=== PATIENT | male | born 1955 | race Caucasian/White ===

== ENCOUNTER 2016-05-16 23:58 | Emergency (ER) | payer MEDICAID ==
[~2016-05-16] VITALS: Ht 177.8 cm; Wt 98.1 kg
[~2016-05-16 23:58] MED LIST: DOXA1 PO; GABA100C4 PO; NAPR220T95 PO; ZOCO40TA PO
[2016-05-17 00:05] VITALS: BP 122/84; PULSE 202; TEMP 98.1; O2SAT 93
[2016-05-17 00:20] VITALS: PULSE 87
[2016-05-17] MEDS ORDERED: NAPR220T95 PO (00:23)
[2016-05-17] MEDS ORDERED: NEUR100C PO (00:23)
[2016-05-17] MEDS ORDERED: TETANUS/DIPHTHERIA TOXOID ADULT 0.5 ML VIAL IM ONE (00:45)
[2016-05-17] MEDS ORDERED: LIDOCAINE HCL 1% 50 ML VIAL INFIL ONE (00:45)
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
== END 2016-05-17 01:13 | disposition left against medical advice (07) ==
LOC: PHED 23:58
DX: S09.90XA Unspecified injury of head, initial encounter (principal); E78.00 Pure hypercholesterolemia, unspecified; J44.9 Chronic obstructive pulmonary disease, unspecified; I10 Essential (primary) hypertension; F17.210 Nicotine dependence, cigarettes, uncomplicated; Z23 Encounter for immunization; Y04.0XXA Assault by unarmed brawl or fight, initial encounter; Y93.9 Activity, unspecified; Y92.9 Unspecified place or not applicable; Y99.9 Unspecified external cause status
CPT/HCPCS: 90471; 90714

== ENCOUNTER 2016-08-29 14:45 | Emergency (ER) | payer MEDICAID ==
[~2016-08-29] VITALS: Ht 175.3 cm; Wt 97.7 kg
[~2016-08-29 14:45] MED LIST changes: -DOXA1 PO; -GABA100C4 PO; +NEUR100C PO; -ZOCO40TA PO
[2016-08-29 14:50] VITALS: BP 114/80; PULSE 81; RESP 18; TEMP 97.9; O2SAT 97
[2016-08-29] MEDS ORDERED: OMEP20TA PO (15:21)
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
[2016-08-29] MEDS ORDERED: RESP: ALBUTEROL 2.5 MG/IPRATROPIUM 0.5 MG NEB (SCH) INH ONE (15:45)
[2016-08-29] MEDS ORDERED: PRED50 PO (16:04)
[2016-08-29] MEDS ORDERED: VENTAER INH (16:04)
--- NOTE | 2016-08-29 16:23 | RADRPT ---
EXAM DATE/TIME: 08/29/2016 15:57 [facility] COMPARISON: CHEST SINGLE AP, December 30, 2014, 17:16. INDICATIONS : Short of breath, cough, pain with cough MEDICAL HISTORY : None. SURGICAL HISTORY : None. ENCOUNTER: Initial ACUITY: 4 - 6 months PAIN SCORE: 6/10 LOCATION: Bilateral chest FINDINGS: The study is taken with a poor inspiratory effort. There is increased density at the bases likely rel ated to compressive changes. Some minimal atelectasis cannot be excluded. The heart size is normal. N o effusion is seen. CONCLUSION: Suspected compressive changes from a poor inspiratory effort at the bases. Dorian Sandoval MD on August 29, 2016 at 16:20 Board Certified Radiologist. This report was verified electronically.
== END 2016-08-29 16:18 | disposition home or self-care (01) ==
LOC: PHED 14:45
DX: J43.9 Emphysema, unspecified (principal); F17.210 Nicotine dependence, cigarettes, uncomplicated; F41.8 Other specified anxiety disorders; E78.00 Pure hypercholesterolemia, unspecified; Z86.73 Personal history of transient ischemic attack (TIA), and cerebral infarction without residual deficits; J44.9 Chronic obstructive pulmonary disease, unspecified; I10 Essential (primary) hypertension
CPT/HCPCS: 71010; 94664; 99284

== ENCOUNTER 2017-03-01 14:47 | Emergency (ER) | payer MEDICAID ==
[~2017-03-01] VITALS: Ht 180.3 cm; Wt 95.0 kg
[~2017-03-01 14:47] MED LIST changes: -NAPR220T95 PO; +OMEP20TA93 PO; +PRED50 PO; +VENTAER INH
[2017-03-01 14:51] VITALS: BP 134/79; PULSE 96; RESP 16; TEMP 97.7; O2SAT 95
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
[2017-03-01] MEDS ORDERED: CEPHALEXIN MONOHYDRATE 500 MG CAP PO ONE (15:15)
[2017-03-01] MEDS ORDERED: LIDOCAINE HCL 1% 50 ML VIAL INFIL ONE (15:15)
[2017-03-01] MEDS ORDERED: TETANUS/DIPHTHERIA TOXOID ADULT 0.5 ML VIAL IM ONE (15:15)
[2017-03-01] MEDS ORDERED: LIDOCAINE HCL 1% 20 ML VIAL INFIL ONE (15:15)
[2017-03-01] MEDS ORDERED: CEPH-460 PO (15:37)
== END 2017-03-01 15:49 | disposition home or self-care (01) ==
LOC: PHEFT 14:47
DX: S61.211A Laceration without foreign body of left index finger without damage to nail, initial encounter (principal); W26.0XXA Contact with knife, initial encounter; Y93.G1 Activity, food preparation and clean up; E78.00 Pure hypercholesterolemia, unspecified; R73.03 Prediabetes; I10 Essential (primary) hypertension; F17.210 Nicotine dependence, cigarettes, uncomplicated; D69.6 Thrombocytopenia, unspecified; Z79.82 Long term (current) use of aspirin
CPT/HCPCS: 12001

== ENCOUNTER 2017-03-05 12:04 | Emergency (ER) | payer MEDICAID ==
[~2017-03-05] VITALS: Ht 180.3 cm; Wt 94.6 kg
[~2017-03-05 12:04] MED LIST changes: +CEPH-460 PO; -PRED50 PO
[2017-03-05 12:10] VITALS: BP 161/88; PULSE 99; RESP 16; TEMP 98.5; O2SAT 97
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
[2017-03-05] MEDS ORDERED: ORPHENADRINE INJ 60 MG/2 ML AMP IM ONE (12:30)
[2017-03-05] MEDS ORDERED: KETOROLAC TROMETHAMINE 60 MG/2 ML (IM) VIAL IM ONE (12:30)
--- NOTE | 2017-03-05 12:55 | RADRPT ---
EXAM DATE/TIME: 03/05/2017 12:36 [facility] COMPARISON: CT ABDOMEN & PELVIS W CONTRAST, April 18, 2014, 18:49. HIP LEFT (AP&LAT 2/3VWS) WO AP PELVIS, May, 17:36. INDICATIONS : Right groin pain with no known injury MEDICAL HISTORY : None. SURGICAL HISTORY : None. ENCOUNTER: Initial ACUITY: 3 days PAIN SCORE: 2/10 LOCATION: Right proximal femur FINDINGS: The shaft of the femur is intact. The primary and secondary trabecular pattern of the femoral neck is intact. On both views, there is questionable lucency in the superior lateral femoral head adjacent t o the articular surface with possible sclerotic rim. The cortical margins of the femoral head are smo oth. No radiopaque foreign body seen. No deep soft tissue swelling. Bony acetabulum is intact. CONCLUSION: Questionable lucency in the subcortical its posterior superior femoral head without evidence of corti chanel irregularity. Recommend further evaluation with MRI to evaluate for the possibility of avascular necrosis Manuel Corona MD on March 05, 2017 at 12:51 Board Certified Radiologist. This report was verified electronically.
[2017-03-05] MEDS ORDERED: MORPHINE SULFATE 2 MG/ML INJ IM ONE (13:15)
[2017-03-05] MEDS ORDERED: MORPHINE SULFATE 2 MG/ML INJ IV PUSH ONE (13:15)
--- NOTE | 2017-03-05 14:16 | RADRPT ---
EXAM DATE/TIME: 03/05/2017 13:38 [facility] COMPARISON: FEMUR RIGHT (AP & LAT/2VWS), March 05, 2017, 12:36. INDICATIONS : Right hip pain, no trauma. RADIATION DOSE: 30.74 CTDIvol (mGy) MEDICAL HISTORY : None SURGICAL HISTORY : None. ENCOUNTER: Initial ACUITY: 1 day PAIN SCALE: 6/10 LOCATION: Right hip TECHNIQUE: Volumetric scanning of the hip was performed. Using automated exposure control and adjustment of the mA and/or kV according to patient size, radiation dose was kept as low as reasonably achievable to o btain optimal diagnostic quality images. DICOM format image data is available electronically for rev iew and comparison. FINDINGS: There is evidence of avascular necrosis of the right femoral head with a mild degree of subchondral c ollapse present. A small joint effusion is present. The adjacent pelvis is intact. There is no evidence of periarticular mass or hematoma. CONCLUSION: Avascular necrosis of the right femoral head with mild subchondral collapse. Small joint effusion. Dorian Ugarte MD on March 05, 2017 at 14:05 Board Certified Radiologist. This report was verified electronically.
[2017-03-05 15:06] VITALS: BP 135/80; PULSE 76; RESP 18; O2SAT 96
[2017-03-05] MEDS ORDERED: MORPHINE SULFATE 4 MG/ML INJ IV PUSH ONE (15:15)
[2017-03-05 15:40] LABS: AUTOMATED NEUTROPHIL # 5.2 TH/MM3 (1.8-7.7); BASOPHIL # 0.1 TH/MM3 (0-0.2); BASOPHIL % 1.3 % (0.0-2.0); EOSINOPHIL # 0.2 TH/MM3 (0-0.4); EOSINOPHIL % 2.5 % (0.0-4.0); HEMATOCRIT 52.6 % (39.0-51.0); HEMOGLOBIN 17.8 GM/DL (13.0-17.0); LYMPH % 24.6 % (9.0-44.0); MEAN CORPUSCULAR HEMOGLOBIN 32.2 PG (27.0-34.0); MEAN CORPUSCULAR HGB CONC 33.9 % (32.0-36.0); MEAN PLATELET VOLUME 9.2 FL (7.0-11.0); MONO % 5.5 % (0.0-8.0); MONOCYTE # 0.4 TH/MM3 (0-0.9); NEUT % 66.1 % (16.0-70.0); PLATELET COUNT 131 TH/MM3 (150-450); RED BLOOD COUNT 5.54 MIL/MM3 (4.50-5.90); RED CELL DISTRIBUTION WIDTH 11.8 % (11.6-17.2); WHITE BLOOD COUNT 7.9 TH/MM3 (4.0-11.0)
[2017-03-05 15:51] LABS: BICARBONATE 23.2 MEQ/L (21.0-32.0); CALCIUM 8.3 MG/DL (8.5-10.1)
[2017-03-05 15:55] LABS: CREATININE 0.79 MG/DL (0.60-1.30)
[2017-03-05] MEDS ORDERED: PERC5TAB12 PO (16:01)
== END 2017-03-05 16:23 | disposition home or self-care (01) ==
LOC: PHED 12:04
DX: M87.9 Osteonecrosis, unspecified (principal); E78.00 Pure hypercholesterolemia, unspecified; F32.9 Major depressive disorder, single episode, unspecified; F41.9 Anxiety disorder, unspecified; I10 Essential (primary) hypertension; J44.9 Chronic obstructive pulmonary disease, unspecified; Z86.73 Personal history of transient ischemic attack (TIA), and cerebral infarction without residual deficits; R73.03 Prediabetes; F17.210 Nicotine dependence, cigarettes, uncomplicated; Z79.82 Long term (current) use of aspirin
CPT/HCPCS: 73552; 73700; 80048; 85025; 96372; 96374; 99285; J1885; J2270; J2360

== ENCOUNTER 2017-05-28 12:40 | Emergency (ER) | payer MEDICAID ==
[~2017-05-28] VITALS: Ht 180.3 cm; Wt 95.3 kg
[~2017-05-28 12:40] MED LIST changes: -CEPH-460 PO; +PERC5TAB12 PO; -VENTAER INH
[2017-05-28 12:45] VITALS: BP 122/77; PULSE 95; RESP 16; TEMP 97.6; O2SAT 100
[2017-05-28] MEDS ORDERED: ALEV220T14 PO (13:50)
[2017-05-28] MEDS ORDERED: TRAZ100T10 PO (13:50)
[2017-05-28] MEDS ORDERED: PANTOPRAZOLE SODIUM 40 MG VIAL IV PUSH ONE (14:15)
[2017-05-28] MEDS ORDERED: SODIUM CHLORIDE 0.9% FLUSH 10 ML FLUSH IVF PRN (14:15)
[2017-05-28] MEDS ORDERED: ONDANSETRON HCL 4 MG/2 ML VIAL IVP ONE (14:15)
[2017-05-28] MEDS ORDERED: MORPHINE SULFATE 4 MG/ML INJ IV PUSH ONE ×2 (14:15→15:30)
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
[2017-05-28 14:35] LABS: CHLORIDE 104 MEQ/L (98-107); SODIUM (NA) 135 MEQ/L (136-145)
[2017-05-28 14:36] LABS: AUTOMATED NEUTROPHIL # 3.3 TH/MM3 (1.8-7.7); BASOPHIL % 0.7 % (0.0-2.0); EOSINOPHIL # 0.1 TH/MM3 (0-0.4); EOSINOPHIL % 1.5 % (0.0-4.0); HEMATOCRIT 50.1 % (39.0-51.0); HEMOGLOBIN 17.4 GM/DL (13.0-17.0); LYMPH % 29.7 % (9.0-44.0); LYMPHOCYTE # 1.7 TH/MM3 (1.0-4.8); MEAN CELL VOLUME 96.9 FL (80.0-100.0); MEAN CORPUSCULAR HEMOGLOBIN 33.6 PG (27.0-34.0); MEAN CORPUSCULAR HGB CONC 34.7 % (32.0-36.0); MEAN PLATELET VOLUME 9.1 FL (7.0-11.0); MONO % 9.9 % (0.0-8.0); MONOCYTE # 0.6 TH/MM3 (0-0.9); NEUT % 58.2 % (16.0-70.0); PLATELET COUNT 174 TH/MM3 (150-450); RED BLOOD COUNT 5.16 MIL/MM3 (4.50-5.90); RED CELL DISTRIBUTION WIDTH 13.9 % (11.6-17.2); WHITE BLOOD COUNT 5.8 TH/MM3 (4.0-11.0)
[2017-05-28 14:39] LABS: ALBUMIN 3.4 GM/DL (3.4-5.0); BICARBONATE 23.1 MEQ/L (21.0-32.0); BLOOD UREA NITROGEN 11 MG/DL (7-18); CALCIUM 8.5 MG/DL (8.5-10.1); GLUCOSE,RANDOM 97 MG/DL (74-106)
[2017-05-28 14:42] VITALS: BP_SYST 119; BP_SYST 123; BP_SYST 163; BP_DIAS 70; BP_DIAS 76; BP_DIAS 98; RESP 16; RESP 18
[2017-05-28 14:42] LABS: ALT (GPT) 44 U/L (12-78); AST (GOT) 37 U/L (15-37); GLOMERULAR FILTRATION RATE 115 ML/MIN (>89)
[2017-05-28 14:44] LABS: TOTAL BILIRUBIN ADULT 0.6 MG/DL (0.2-1.0); TOTAL PROTEIN 6.8 GM/DL (6.4-8.2)
[2017-05-28 14:45] LABS: ALKALINE PHOSPHATASE 122 U/L (45-117)
--- NOTE | 2017-05-28 14:45 | RADRPT ---
EXAM DATE/TIME: 05/28/2017 14:21 [facility] COMPARISON: No previous studies available for comparison. INDICATIONS : Right shoulder pain post fall. MEDICAL HISTORY : None. SURGICAL HISTORY : None. ENCOUNTER: Initial ACUITY: 2 days PAIN SCORE: 10/10 LOCATION: Right lateral shoulder FINDINGS: First degree AC separation No dislocation no fracture Minimal peripheral changes right lung apex. CONCLUSION: First degree right AC separation. No fracture Fausto Hamilton MD FACR on May 28, 2017 at 14:41 Board Certified Radiologist. This report was verified electronically.
--- NOTE | 2017-05-28 14:45 | RADRPT ---
EXAM DATE/TIME: 05/28/2017 14:21 [facility] COMPARISON: No previous studies available for comparison. INDICATIONS : Right knee pain post fall. MEDICAL HISTORY : None. SURGICAL HISTORY : None. ENCOUNTER: Initial ACUITY: 2 days PAIN SCORE: 10/10 LOCATION: Right anterior knee FINDINGS: Four view examination of the right knee demonstrates no evidence of fracture or dislocation. Bony mi neralization is normal. The articular surfaces are intact. The suprapatellar soft tissues have a no rmal configuration. CONCLUSION: Negative for fracture or dislocation. Follow up in 7-10 days is suggested if symptoms persist. Fausto Hamilton MD FACR on May 28, 2017 at 14:43 Board Certified Radiologist. This report was verified electronically.
--- NOTE | 2017-05-28 14:46 | RADRPT ---
EXAM DATE/TIME: 05/28/2017 14:21 [facility] COMPARISON: SHOULDER RIGHT COMPLETE (>2VWS), May 28, 2017, 14:21. CHEST SINGLE AP, August 29, 2016, 15:57. INDICATIONS : Short of breath MEDICAL HISTORY : None. SURGICAL HISTORY : None. ENCOUNTER: Initial ACUITY: 1 day PAIN SCORE: 0/10 LOCATION: Bilateral chest FINDINGS: Minimal cortical changes right apex. Left lung clear. The heart and pulmonary vascularity are normal . Right shoulder x-ray had shown an VENICE separation. CONCLUSION: Negative for an acute process.. Fausto Hamilton MD FACR on May 28, 2017 at 14:43 Board Certified Radiologist. This report was verified electronically.
[2017-05-28 14:47] LABS: TROPONIN I LESS THAN 0.02 NG/ML (0.02-0.05)
[2017-05-28 15:15] VITALS: BP 123/76; PULSE 75; RESP 18; O2SAT 97
[2017-05-28] MEDS ORDERED: IOHEXOL 350 MG/ML 10 ML VIAL (for RAD DIAG) IVCONTRAST ONE (15:17)
--- NOTE | 2017-05-28 15:24 | RADRPT ---
EXAM DATE/TIME: 05/28/2017 14:51 [facility] COMPARISON: No previous studies available for comparison. INDICATIONS : Trauma. Fell down a flight of stairs. Hit his head, right neck pain, right shoulder pain and left f lank pain. RADIATION DOSE: 67.94 CTDIvol (mGy) MEDICAL HISTORY : Chronic obstructive pulmonary disease. Seizures. Cardiovascular diseaseHypertensions. Traumatic brai n injury. SURGICAL HISTORY : Facial surgery. ENCOUNTER: Initial ACUITY: 1 day PAIN SCALE: 2/10 LOCATION: cranial TECHNIQUE: Multiple contiguous axial images were obtained of the head. Using automated exposure control and adj ustment of the mA and/or kV according to patient size, radiation dose was kept as low as reasonably a chievable to obtain optimal diagnostic quality images. DICOM format image data is available electro nically for review and comparison. FINDINGS: CEREBRUM: The ventricles are normal for age. No evidence of midline shift, mass lesion, hemorrhage or acute in farction. No extra-axial fluid collections are seen. POSTERIOR FOSSA: The cerebellum and brainstem are intact. The 4th ventricle is midline. The cerebellopontine angle i s unremarkable. EXTRACRANIAL: The visualized portion of the orbits is intact. SKULL: The calvaria is intact. No evidence of skull fracture. CONCLUSION: No acute intracranial disease. Yunior Monaco MD on May 28, 2017 at 15:21 Board Certified Radiologist. This report was verified electronically.
--- NOTE | 2017-05-28 15:25 | RADRPT ---
EXAM DATE/TIME: 05/28/2017 14:51 [facility] COMPARISON: No previous studies available for comparison. INDICATIONS : Trauma. Fell down a flight of stairs. Hit his head, right neck pain, right shoulder pain and left f lank pain. RADIATION DOSE: 26.56 CTDIvol (mGy) MEDICAL HISTORY : Chronic obstructive pulmonary disease. Seizures. Cardiovascular diseaseHypertension. Traumatic brain injury. SURGICAL HISTORY : Facial surgery. ENCOUNTER: Initial ACUITY: 1 day PAIN SCALE: 5/10 LOCATION: Right neck TECHNIQUE: Volumetric scanning of the cervical spine was performed. Multiplanar reconstructions in the sagittal, coronal and oblique axial planes were performed. Using automated exposure control and adjustment o f the mA and/or kV according to patient size, radiation dose was kept as low as reasonably achievable to obtain optimal diagnostic quality images. DICOM format image data is available electronically f or review and comparison. FINDINGS: VERTEBRAE: Normal vertebral body height. Degenerative changes throughout the cervical spine. ALIGNMENT: No evidence of subluxation. Emphysematous changes in the apices. C2-C3: The bony spinal canal is normal in size. No evidence of disc bulge or herniation. The neural forami na are bilaterally patent. C3-C4: The bony spinal canal is normal in size. No evidence of disc bulge or herniation. The neural forami na are bilaterally patent. C4-C5: The bony spinal canal is normal in size. No evidence of disc bulge or herniation. The neural forami na are bilaterally patent. C5-C6: The bony spinal canal is normal in size. No evidence of disc bulge or herniation. The neural forami na are bilaterally patent. C6-C7: The bony spinal canal is normal in size. No evidence of disc bulge or herniation. The neural forami na are bilaterally patent. C7-T1: The bony spinal canal is normal in size. No evidence of disc bulge or herniation. The neural forami na are bilaterally patent. CONCLUSION: 1. Degenerative changes without fracture. Yunior Monaco MD on May 28, 2017 at 15:22 Board Certified Radiologist. This report was verified electronically.
--- NOTE | 2017-05-28 15:37 | RADRPT ---
EXAM DATE/TIME: 05/28/2017 14:51 [facility] COMPARISON: CT ABDOMEN & PELVIS W CONTRAST, April 18, 2014, 18:49. INDICATIONS : Trauma. Fell down a flight of stairs. Hit his head, right neck pain, right shoulder pain and lef t flank pain. IV CONTRAST: 85 cc Omnipaque 350 (iohexol) IV ORAL CONTRAST: No oral contrast ingested. RADIATION DOSE: 19.10 CTDIvol (mGy) MEDICAL HISTORY : Chronic obstructive pulmonary disease. Seizures. Cardiovascular diseaseHypertension. Traumatic brain injury. SURGICAL HISTORY : Facial surgery. ENCOUNTER: Initial ACUITY: 1 day PAIN SCALE: 5/10 LOCATION: Left flank TECHNIQUE: Volumetric scanning of the abdomen and pelvis was performed. Using automated exposure control and ad justment of the mA and/or kV according to patient size, radiation dose was kept as low as reasonably achievable to obtain optimal diagnostic quality images. DICOM format image data is available electro nically for review and comparison. FINDINGS: LOWER LUNGS: The visualized lower lungs are clear. LIVER: Homogeneously low in density without lesion. There is no dilation of the biliary tree. No calcified gallstones. SPLEEN: Normal size without lesion. PANCREAS: Within normal limits. KIDNEYS: Normal in size and shape. There is no mass, stone or hydronephrosis. ADRENAL GLANDS: Within normal limits. VASCULAR: There is no aortic aneurysm. BOWEL/MESENTERY: The stomach, small bowel, and colon demonstrate no acute abnormality. There is no free intraperitone al air or fluid. Scattered colonic diverticuli without acute inflammation. ABDOMINAL WALL: Within normal limits. RETROPERITONEUM: There is no lymphadenopathy. BLADDER: No wall thickening or mass. REPRODUCTIVE: Within normal limits. INGUINAL: There is no lymphadenopathy or hernia. MUSCULOSKELETAL: Within normal limits for patient age. CONCLUSION: No acute disease. Hepatic steatosis. Manuel Grant Jr., MD on May 28, 2017 at 15:31 Board Certified Radiologist. This report was verified electronically.
[2017-05-28 16:00] VITALS: BP_SYST 140; BP_SYST 142; BP_SYST 149; BP_DIAS 80; BP_DIAS 88; BP_DIAS 96; RESP 16; RESP 18
[2017-05-28] MEDS ORDERED: PERC5TAB12 PO (16:00)
[2017-05-28] MEDS ORDERED: ROBA500T PO (16:00)
[2017-05-28] MEDS ORDERED: IBUP1TAB7 PO (16:00)
[2017-05-28] MEDS ORDERED: WHEEMIS3 (16:08)
[2017-05-28] MEDS ORDERED: ORPHENADRINE INJ 60 MG/2 ML AMP IM ONE (16:15)
--- NOTE | 2017-05-29 19:57 | EKG ---
Date Performed: 05/28/2017 Time Performed: 14:48:54 PTAGE: 62 years EKG: Sinus rhythm BORDERLINE LEFT AXIS DEVIATION BORDERLINE ECG Since PREVIOUS TRACING , no significant change noted PREVIOUS TRACIN07/24/2015 18.26 DOCTOR: Deb Roca Interpretating Date/Time 05/29/2017 19:55:59
== END 2017-05-28 16:25 | disposition home or self-care (01) ==
LOC: PHED 12:40 → PHEFT 16:25
DX: S43.101A Unspecified dislocation of right acromioclavicular joint, initial encounter (principal); S79.911A Unspecified injury of right hip, initial encounter; S89.91XA Unspecified injury of right lower leg, initial encounter; S09.90XA Unspecified injury of head, initial encounter; M54.2 Cervicalgia; R10.9 Unspecified abdominal pain; K21.9 Gastro-esophageal reflux disease without esophagitis; R94.31 Abnormal electrocardiogram [ECG] [EKG]; W10.8XXA Fall (on) (from) other stairs and steps, initial encounter; E78.00 Pure hypercholesterolemia, unspecified; I10 Essential (primary) hypertension; F41.8 Other specified anxiety disorders; R73.03 Prediabetes; Z79.82 Long term (current) use of aspirin; Z86.79 Personal history of other diseases of the circulatory system; Z87.09 Personal history of other diseases of the respiratory system; Z86.73 Personal history of transient ischemic attack (TIA), and cerebral infarction without residual deficits; Z87.39 Personal history of other diseases of the musculoskeletal system and connective tissue; Z86.69 Personal history of other diseases of the nervous system and sense organs
CPT/HCPCS: 70450; 71045; 72125; 73030; 73564; 74177; 80053; 84484; 85025; 93005; 96372; 96374; 96375; 96376; 99285; C9113; J2270; J2360; J2405; Q9967

== ENCOUNTER 2017-07-11 12:16 | Emergency (ER) | payer SELFPAY, MEDICAID ==
[2017-07-11] MEDS ORDERED: SODIUM CHLORIDE 0.9% FLUSH 10 ML FLUSH IVF (12:45)
[2017-07-11] MEDS: KETOROLAC TROMETHAMINE 30 MG/ML (IVP) VIAL IV PUSH (13:07)
[2017-07-11 13:39] LABS: BASOPHIL % 0.4 % (0.0-2.0); EOSINOPHIL # 0.1 TH/MM3 (0-0.4); EOSINOPHIL % 1.1 % (0.0-4.0); HEMATOCRIT 40.9 % (39.0-51.0); HEMO FLAGS DIFF FINAL; HEMOGLOBIN 14.1 GM/DL (13.0-17.0); LYMPH % 17.2 % (9.0-44.0); MEAN CELL VOLUME 97.9 FL (80.0-100.0); MEAN CORPUSCULAR HEMOGLOBIN 33.9 PG (27.0-34.0); MEAN CORPUSCULAR HGB CONC 34.6 % (32.0-36.0); MEAN PLATELET VOLUME 9.3 FL (7.0-11.0); MONO % 14.9 % (0.0-8.0); MONOCYTE # 0.9 TH/MM3 (0-0.9); NEUT % 66.4 % (16.0-70.0); PLATELET COUNT 147 TH/MM3 (150-450); RED BLOOD COUNT 4.18 MIL/MM3 (4.50-5.90); RED CELL DISTRIBUTION WIDTH 11.9 % (11.6-17.2)
[2017-07-11 13:49] LABS: CHLORIDE 97 MEQ/L (98-107); POTASSIUM 3.4 MEQ/L (3.5-5.1); SODIUM (NA) 134 MEQ/L (136-145)
[2017-07-11 13:52] LABS: APTT (PATIENT) 24.2 SEC (24.3-30.1); CALCIUM 8.4 MG/DL (8.5-10.1)
[2017-07-11 13:53] LABS: ANION GAP 7 MEQ/L (5-15); BLOOD UREA NITROGEN 12 MG/DL (7-18); GLUCOSE,RANDOM 137 MG/DL (74-106)
[2017-07-11 13:56] LABS: CREATININE 0.57 MG/DL (0.60-1.30); GLOMERULAR FILTRATION RATE 146 ML/MIN (>89)
[2017-07-11 13:59] LABS: CREATINE KINASE 348 U/L (39-308)
[2017-07-11] MEDS: LIDOCAINE HCL 5% PATCH T-DERMAL (14:00)
[2017-07-11 14:15] LABS: CKMB % 0.9 % (0.0-4.0)
[2017-07-11] MEDS: oxyCODONE/ACETAMINOPHEN 7.5 MG/325 MG TAB PO (14:23)
== END 2017-07-11 14:50 | disposition home or self-care (01) ==
LOC: PHED 12:16
DX: S70.01XA Contusion of right hip, initial encounter (principal); R73.03 Prediabetes; I10 Essential (primary) hypertension; J44.9 Chronic obstructive pulmonary disease, unspecified; F41.9 Anxiety disorder, unspecified; E78.00 Pure hypercholesterolemia, unspecified; W19.XXXA Unspecified fall, initial encounter; Z96.641 Presence of right artificial hip joint; Z86.73 Personal history of transient ischemic attack (TIA), and cerebral infarction without residual deficits
CPT/HCPCS: 73501; 80048; 82550; 82552; 85025; 85610; 85730; 93005; 93971; 96374; 99285-25

== ENCOUNTER 2017-12-26 15:10 | Observation (INO) ==
[2017-12-26] MEDS ORDERED: Morphine Inj 4 MG/ML Vial IV.PUSH ONE ×2 (15:20→16:17)
[2017-12-26 16:05] LABS: Chloride 103 meq/L (98-107); Sodium 135 meq/L (136-145)
--- NOTE | 2017-12-26 16:07 | XR ---
EXAM DATE: 12/26/2017 3:21 PM EDT AGE/SEX: 62 years / Male INDICATIONS: Chest pain. CLINICAL DATA: This is the patient's initial encounter. Patient reports that signs and symptoms have been present for 1 day and indicates a pain score of 5/10. MEDICAL/SURGICAL HISTORY: None. None. COMPARISON: POI, XR CHEST PA AND LAT, 12/24/2017. . FINDINGS: Diffuse interstitial prominence exaggerated by iliac pituitary technique. Bibasilar linear opacities. Cardiomediastinal contours are stable given differences in technique. Prior right clavicle resection . Remainder of the exam is unchanged. CONCLUSION: 1. Stable diffuse interstitial prominence with bibasilar atelectasis. Electronically signed by: Geremias Cabrera MD 12/26/2017 4:06 PM EDT
--- NOTE | 2017-12-26 16:08 | ED ---
HPI General Chief complaint: Chest Pain Stated complaint: ALEXANDRA REYNA ATTACK Time Seen by Provider: 12/26/17 15:15 Source: patient Mode of arrival: ambulatory Limitations: no limitations History of Present Illness HPI narrative: Patient is a 62 year old male who comes in complaining of left sided chest pain. He says he has been having issues with chest pain for a few months now. He says he has gone to his doctor and had blood work ordered, which he just had done on Wednesday. He says today, he was making dinner when he developed sharp pain to the left side of his chest that doubled him over. He says deep breathing makes the pain worse. He takes a baby aspirin at home daily. He says he had a cardiac cath a few years ago where they "cleaned something out," but he does not have any cardiac stents. He denies cough or cold symptoms. He denies fever or chills. He denies any recent travel. Severity is moderate. Related Data Home Medications Medication Instructions Recorded Confirmed gabapentin 300 mg PO BID 11/23/17 12/26/17 trazodone 50 mg PO HS PRN 11/23/17 12/26/17 aspirin 1 tab PO DAILY 12/26/17 12/26/17 atorvastatin 10 mg PO DAILY 12/26/17 12/26/17 omeprazole 20 mg PO DAILY 12/26/17 12/26/17 Allergies Allergy/AdvReac Type Severity Reaction Status Date / Time acetaminophen Allergy Severe Itching, Verified 12/26/17 15:47 nausea hydrocodone Allergy Severe Itching, Verified 12/26/17 15:47 nausea Review of Systems ROS: all other systems reviewed are negative Constitutional Denies chills and Denies fever(s) ENT Denies dizziness Cardiovascular Reports chest pain Respiratory Denies cough and Denies dyspnea Gastrointestinal Denies nausea and Denies vomiting Musculoskeletal Denies myalgias and Denies arthralgias Integumentary/Breasts Denies sores and Denies wounds Neurologic Denies focal weakness and Denies numbness [facility] Medical History Medical History CVA (cerebral vascular accident) (Acute) GERD (gastroesophageal reflux disease) (Acute) High cholesterol (Acute) Surgical History Surgical History H/O shoulder surgery (Acute) History of hip replacement, total (Acute) Family History Family History Mother Leukemia Social History Social History Substance History: No History of Abuse Smoking Status: Light tobacco smoker Tobacco Type: Cigarettes How Often Do You Have a Drink Containing Alcohol: 2 to 4 times a month Recent Travel in [facility] within the Last 8 Weeks: No Recent Out of Country Travel within the Last 8 Weeks: No Immunization History Tetanus Immunization: Unsure Exam Narrative Exam Narrative: GENERAL: Awake and alert, no acute distress. SKIN: Focused skin assessment warm/dry. No wounds or signs of infection. HEAD: Atraumatic. Normocephalic. EYES: Pupils equal and round. No scleral icterus. ENT: Mucous membranes pink and moist. NECK: Trachea midline. No JVD. CARDIOVASCULAR: Regular rate and rhythm. No murmur appreciated. RESPIRATORY: No accessory muscle use. Clear to auscultation. Breath sounds equal bilaterally. GASTROINTESTINAL: Abdomen soft, non-tender, nondistended. MUSCULOSKELETAL: No obvious deformities. No clubbing. No cyanosis. No edema. NEUROLOGICAL: Awake and alert. No obvious cranial nerve deficits. Motor grossly within normal limits. Normal speech. PSYCHIATRIC: Appropriate mood and affect; insight and judgment normal. Course Initial Documented Vital Signs Temperature 97.5 F L 12/26/17 15:19 Pulse Rate 66 12/26/17 15:19 Respiratory Rate 18 12/26/17 15:19 Blood Pressure 142/92 H 12/26/17 15:19 Pulse Oximetry 100 12/26/17 15:19 Last Documented Vital Signs Temperature 97.5 F L 12/26/17 15:19 Pulse Rate 60 12/26/17 17:14 Respiratory Rate 18 12/26/17 17:14 Blood Pressure 126/67 12/26/17 17:14 Pulse Oximetry 99 12/26/17 17:14 Medical Decision Making MDM Narrative Medical decision making narrative: Patient is a 62-year-old male who comes in complaining of chest pain. Exam shows no acute abnormalities. IV established, labs sent. Patient connected to the telemetry monitor. Troponin is negative, labs show no acute abnormalities. Chest x-ray performed shows no acute abnormalities. Patient given aspirin, nitro, morphine. He will be placed in observation for further management. Medical Screen Exam Complete: Yes Emergency Medical Condition: Yes Differential Diagnosis Differential Diagnosis: ACS versus NSTEMI versus STEMI Medical Records Medical records reviewed: Yes I reviewed the patient's medical records. Lab Data Lab results reviewed: Yes I reviewed the patient's lab results. Result diagrams: 12/26/17 15:45 12/26/17 15:45 Lab Results 12/26/17 12/26/17 12/26/17 Range/Units 15:45 15:45 15:45 CBC w Diff Auto diff final WBC 6.1 (4.0-11.0) th/mm3 RBC 5.08 (4.50-5.90) mil/mm3 Hgb 16.7 (13.0-17.0) gm/dL Hct 49.3 (39.0-51.0) % MCV 97.1 (80.0-100.0) fL MCH 32.9 (27.0-34.0) pg MCHC 33.9 (32.0-36.0) % RDW 12.9 (11.6-17.2) % Plt Count 143 L (150-450) th/mm3 MPV 9.6 (7.0-11.0) fL Neut % (Auto) 55.5 (16.0-70.0) % Lymph % (Auto) 33.4 (9.0-44.0) % [place] % (Auto) 8.5 H (0.0-8.0) % Eos % (Auto) 1.5 (0.0-4.0) % Baso % (Auto) 1.1 (0.0-2.0) % Neut # (Auto) 3.4 (1.8-7.7) th/mm3 Lymph # (Auto) 2.0 (1.0-4.8) th/mm3 [place] # (Auto) 0.5 (0.0-0.9) th/mm3 Eos # (Auto) 0.1 (0.0-0.4) th/mm3 Baso # (Auto) 0.1 (0.0-0.2) th/mm3 WBC Differential . Differential Comment . PT 10.9 (9.8-11.6) sec INR 1.1 Ratio APTT 22.8 L (24.3-30.1) sec Sodium (136-145) meq/L Potassium (3.5-5.1) meq/L Chloride (98-107) meq/L Carbon Dioxide (21.0-32.0) meq/L Anion Gap (5-15) meq/L BUN (7-18) mg/dL Creatinine (0.60-1.30) mg/dL Estimated GFR (>89) mL/min Random Glucose (74-106) mg/dL Calcium (8.5-10.1) mg/dL Total Bilirubin (0.2-1.0) mg/dL AST (15-37) U/L ALT (12-78) U/L Alkaline Phosphatase (45-117) U/L Total Creatine Kinase (39-308) U/L CK-MB (CK-2) (0.5-3.6) ng/mL Troponin I (0.02-0.05) ng/mL Total Protein (6.4-8.2) g/dL Albumin (3.4-5.0) g/dL Lipase Cancelled 12/26/17 Range/Units 15:45 CBC w Diff WBC (4.0-11.0) th/mm3 RBC (4.50-5.90) mil/mm3 Hgb (13.0-17.0) gm/dL Hct (39.0-51.0) % MCV (80.0-100.0) fL MCH (27.0-34.0) pg MCHC (32.0-36.0) % RDW (11.6-17.2) % Plt Count (150-450) th/mm3 MPV (7.0-11.0) fL Neut % (Auto) (16.0-70.0) % Lymph % (Auto) (9.0-44.0) % [place] % (Auto) (0.0-8.0) % Eos % (Auto) (0.0-4.0) % Baso % (Auto) (0.0-2.0) % Neut # (Auto) (1.8-7.7) th/mm3 Lymph # (Auto) (1.0-4.8) th/mm3 [place] # (Auto) (0.0-0.9) th/mm3 Eos # (Auto) (0.0-0.4) th/mm3 Baso # (Auto) (0.0-0.2) th/mm3 WBC Differential Differential Comment PT (9.8-11.6) sec INR Ratio APTT (24.3-30.1) sec Sodium 135 L (136-145) meq/L Potassium 4.1 (3.5-5.1) meq/L Chloride 103 (98-107) meq/L Carbon Dioxide 21.8 (21.0-32.0) meq/L Anion Gap 10 (5-15) meq/L BUN 12 (7-18) mg/dL Creatinine 0.87 (0.60-1.30) mg/dL Estimated GFR Greater than 89 (>89) mL/min Random Glucose 128 H (74-106) mg/dL Calcium 8.8 (8.5-10.1) mg/dL Total Bilirubin 1.1 H (0.2-1.0) mg/dL AST 44 H (15-37) U/L ALT 43 (12-78) U/L Alkaline Phosphatase 109 (45-117) U/L Total Creatine Kinase 160 (39-308) U/L CK-MB (CK-2) 2.9 (0.5-3.6) ng/mL Troponin I Less than 0.02 L (0.02-0.05) ng/mL Total Protein 7.5 (6.4-8.2) g/dL Albumin 3.6 (3.4-5.0) g/dL Lipase 133 Imaging Data Radiologist's impression: Chest X-Ray 12/26/17 15:21 CONCLUSION: 1. Stable diffuse interstitial prominence with bibasilar atelectasis. ECG Data EKG Prior to Arrival: No Attestation: I personally reviewed and interpreted this ECG as follows: Interpretation: ECG shows normal sinus rhythm, no ST elevation or depression, normal intervals Discharge Plan Discharge Disposition Patient Disposition: 30 Still Patient Discharge Condition Condition: Stable Discharge Details Diagnosis: Chest pain Physicians Team ED Provider: Lorena Chery Primary Care Provider: UNKNOWN, Attending Provider: Bouchra Wray Status ED Status: Admitted Observation Patient
[2017-12-26 16:09] LABS: Albumin 3.6 g/dL (3.4-5.0); Calcium 8.8 mg/dL (8.5-10.1); Glucose,Random 128 mg/dL (74-106); Lipase 133 U/L (73-393)
[2017-12-26 16:10] LABS: Anion Gap 10 meq/L (5-15); Blood Urea Nitrogen 12 mg/dL (7-18); Carbon Dioxide 21.8 meq/L (21.0-32.0)
[2017-12-26 16:12] LABS: Alanine Aminotransferase 43 U/L (12-78); Aspartate Aminotransferase 44 U/L (15-37); Glomerular Filtration Rate Greater Than 89 mL/min (>89)
[2017-12-26 16:14] LABS: Total Protein 7.5 g/dL (6.4-8.2)
[2017-12-26 16:15] LABS: Alkaline Phosphatase 109 U/L (45-117); Creatine Kinase 160 U/L (39-308)
[2017-12-26 16:17] LABS: Potassium 4.1 meq/L (3.5-5.1)
[2017-12-26 16:21] LABS: Baso # (Auto) 0.1 th/mm3 (0.0-0.2); Baso % (Auto) 1.1 % (0.0-2.0); Eos # (Auto) 0.1 th/mm3 (0.0-0.4); Eos % (Auto) 1.5 % (0.0-4.0); Hematocrit 49.3 % (39.0-51.0); Hemoglobin 16.7 gm/dL (13.0-17.0); Lymph % (Auto) 33.4 % (9.0-44.0); Mean Corpuscular HGB Conc 33.9 % (32.0-36.0); Mean Corpuscular Hemoglobin 32.9 pg (27.0-34.0); Mean Corpuscular Volume 97.1 fL (80.0-100.0); Mean Platelet Volume 9.6 fL (7.0-11.0); Mono # (Auto) 0.5 th/mm3 (0.0-0.9); Mono % (Auto) 8.5 % (0.0-8.0); Neut # (Auto) 3.4 th/mm3 (1.8-7.7); Neut % (Auto) 55.5 % (16.0-70.0); Platelet Count 143 th/mm3 (150-450); Red Blood Count 5.08 mil/mm3 (4.50-5.90); Red Cell Distribution Width 12.9 % (11.6-17.2); White Blood Count 6.1 th/mm3 (4.0-11.0)
[2017-12-26 16:30] LABS: Creatine Kinase MB 2.9 ng/mL (0.5-3.6)
[2017-12-26 16:38] LABS: Activated Partial Thrombo Time 22.8 sec (24.3-30.1); INR 1.1 Ratio; Prothrombin Time 10.9 sec (9.8-11.6)
[2017-12-26] MEDS ORDERED: traZODone 50 MG Tablet PO PRN (17:49)
--- NOTE | 2017-12-26 17:49 | P.HP ---
History of Present Illness Primary Care Physician: UNKNOWN Chief Complaint: chest pain History of Present Illness: This is a 62-year-old male patient with a known medical history of CAD and previous ND who presented to the ED with complaints of chest pain. Patient states that as he is prepping dinner tonight he noticed a heavy squeezing sensation in his midsternal chest, that radiated up his neck and shoulders, patient states that the pain lasted roughly 5 minutes and went away on its own. Patient admits to associated shortness of breath, nausea and diaphoresis. She states that over the past couple weeks he has been having these types of sensations and they have been more frequent now. He does admit to increasing life stressors as well which may be contributing to his chest pain he states. Patient states 2 weeks ago he presented to [facility] for evaluation of chest pain at that time an ND was ruled out, patient states that the place was too busy and sent home. It should be noted that patient underwent a cardiac catheterization 2001, was said to have an ND at that time, he is unaware if they did during the cardiac cath, denies any stent placement. Patient does not follow with a epic trainer. Denies any recent illness including fever, chills, cough, headache, dumping, nausea, vomiting, diarrhea or dysuria. - Diagnosis (1) Chest pain Review of Systems All other systems reviewed negative except as stated in HPI PMFSH - History History Provided By: Patient - Medical History Medical History: Medical History (Last Reviewed 12/26/17 @ 17:45 by Lorena Fraser) CVA (cerebral vascular accident) GERD (gastroesophageal reflux disease) High cholesterol - Surgical History Surgical History: Surgical History (Last Reviewed 12/26/17 @ 17:45 by Lorena Fraser) H/O shoulder surgery History of hip replacement, total - Family History Family History: Family History (Last Updated 12/26/17 @ 17:45 by Lorena Fraser) Mother Leukemia - Social History I have reviewed the patient's Social History: Yes - Tobacco History Tobacco Use In Past 30 Days: Yes Smoking Status: Light tobacco smoker Tobacco Type: Cigarettes - Alcohol History How Often Do You Have a Drink Containing Alcohol: 2 to 4 times a month - Substance Use History Substance History: No History of Abuse - Travel History Recent Travel in the [facility] Within the Last 8 Weeks: No Recent Travel Out of the Country Within the Last 8 Weeks: No - Immunization History Tetanus Immunization: Unsure Medications and Allergies Active Medications: Active Medications Nitroglycerin (Nitrostat Sl) 0.4 mg SL Q5M PRN PRN Reason: CHEST PAIN Ondansetron HCl (Zofran Inj) 4 mg IV.PUSH Q6H PRN PRN Reason: NAUSEA Sodium Chloride (Ns Flush) 2 ml IV.FLUSH BID EVON Sodium Chloride (Ns Flush) 2 ml IV.FLUSH PRN PRN PRN Reason: FLUSH AFTER USING IV ACCESS Allergies Allergy/AdvReac Type Severity Reaction Status Date / Time acetaminophen Allergy Severe Itching, Verified 12/26/17 15:47 nausea hydrocodone Allergy Severe Itching, Verified 12/26/17 15:47 nausea Home Medications Medication Instructions Recorded Confirmed Type gabapentin 300 mg PO BID 11/23/17 12/26/17 History trazodone 50 mg PO HS PRN 11/23/17 12/26/17 History aspirin 1 tab PO DAILY 12/26/17 12/26/17 History atorvastatin 10 mg PO DAILY 12/26/17 12/26/17 History omeprazole 20 mg PO DAILY 12/26/17 12/26/17 History Exam Vital signs: Vital Signs 12/26/17 15:19 12/26/17 15:40 12/26/17 15:46 Temperature 97.5 F L Pulse Rate 66 67 79 Respiratory Rate 18 18 Blood Pressure 142/92 H 120/65 Pulse Oximetry 100 98 98 12/26/17 16:03 12/26/17 16:15 12/26/17 17:14 Temperature Pulse Rate 69 62 60 Respiratory Rate 18 18 18 Blood Pressure 132/79 111/61 126/67 Pulse Oximetry 100 98 99 Intake & Output 12/25/17 12/26/17 12/26/17 18:59 06:59 18:59 Weight 93.2 kg Narrative: GENERAL: Well-developed, well-nourished patient in [facility]. SKIN: Warm and dry. No rash. HEAD: Normocephalic. Atraumatic. EYES: Pupils equal and round. No scleral icterus. No injection or drainage. ENT: No nasal bleeding or discharge. Mucous membranes pink and moist. NECK: Supple. Trachea midline. CARDIOVASCULAR: Regular rate and rhythm. S1, S2 noted. No murmur appreciated. No chest pain to palpation. RESPIRATORY: No accessory muscle use. Clear to auscultation. Breath sounds equal bilaterally. GASTROINTESTINAL: Abdomen soft, non-tender, nondistended. Normoactive bowel sounds x4. MUSCULOSKELETAL: No obvious deformities. Extremities without clubbing, cyanosis , or edema. NEUROLOGICAL: Awake and alert. No obvious cranial nerve deficits. Motor grossly within normal limits. 5/5 muscle strength in bilateral upper and lower extremities. Normal speech. PSYCHIATRIC: Appropriate mood and affect; insight and judgment normal. Results - Labs CBC & Chem 7: 12/26/17 15:45 12/26/17 15:45 Labs: Laboratory Results - last 24 hr 12/26/17 12/26/17 12/26/17 15:45 15:45 15:45 CBC w Diff Auto diff final WBC 6.1 RBC 5.08 Hgb 16.7 Hct 49.3 MCV 97.1 MCH 32.9 MCHC 33.9 RDW 12.9 Plt Count 143 L MPV 9.6 Neut % (Auto) 55.5 Lymph % (Auto) 33.4 [place] % (Auto) 8.5 H Eos % (Auto) 1.5 Baso % (Auto) 1.1 Neut # (Auto) 3.4 Lymph # (Auto) 2.0 [place] # (Auto) 0.5 Eos # (Auto) 0.1 Baso # (Auto) 0.1 WBC Differential . Differential Comment . PT 10.9 INR 1.1 APTT 22.8 L Sodium Potassium Chloride Carbon Dioxide Anion Gap BUN Creatinine Estimated GFR Random Glucose Calcium Total Bilirubin AST ALT Alkaline Phosphatase Total Creatine Kinase CK-MB (CK-2) Troponin I Total Protein Albumin Lipase Cancelled 12/26/17 15:45 CBC w Diff WBC RBC Hgb Hct MCV MCH MCHC RDW Plt Count MPV Neut % (Auto) Lymph % (Auto) [place] % (Auto) Eos % (Auto) Baso % (Auto) Neut # (Auto) Lymph # (Auto) [place] # (Auto) Eos # (Auto) Baso # (Auto) WBC Differential Differential Comment PT INR APTT Sodium 135 L Potassium 4.1 Chloride 103 Carbon Dioxide 21.8 Anion Gap 10 BUN 12 Creatinine 0.87 Estimated GFR Greater than 89 Random Glucose 128 H Calcium 8.8 Total Bilirubin 1.1 H AST 44 H ALT 43 Alkaline Phosphatase 109 Total Creatine Kinase 160 CK-MB (CK-2) 2.9 Troponin I Less than 0.02 L Total Protein 7.5 Albumin 3.6 Lipase 133 - Imaging Impressions Chest X-Ray 12/26/17 15:21 CONCLUSION: 1. Stable diffuse interstitial prominence with bibasilar atelectasis. Caprini VTE Risk Assessment Caprini VTE Risk Assessment: No/Low Risk (score <= 1) Caprini Risk Assessment Model: Point Value = 1 Point Value = 2 Point Value = 3 Point Value = 5 Age 41-60 Minor surgery BMI > 25 kg/m2 Swollen legs Varicose veins or History of unexplained or recurrent spontaneous Oral contraceptives or hormone replacement Sepsis (< 1 month) Serious lung disease, including pneumonia (< 1 month) Abnormal pulmonary function Acute myocardial infarction Congestive heart failure (< 1 month) History of inflammatory bowel disease Medical patient at bed rest Age 61-74 Arthroscopic surgery Major open surgery (> 45 min) Laparoscopic surgery (> 45 min) Malignancy Confined to bed (> 72 hours) Immobilizing plaster cast Central venous access Age >= 75 History of VTE Family history of VTE Factor V Leiden Prothrombin [id number] Lupus anticoagulant Anticardiolipin antibodies Elevated serum homocysteine Heparin-induced thrombocytopenia Other congenital or acquired thrombophilia Stroke (< 1 month) Elective arthroplasty Hip, pelvis, or leg fracture Acute spinal cord injury (< 1 month) Prophylaxis Regimen: Total Risk Factor Score Risk Level Prophylaxis Regimen 0-1 Low Early ambulation 2 Moderate Order ONE of the following: *Sequential Compression Device (SCD) *Heparin 5000 units SQ BID 3-4 Higher Order ONE of the following medications: *Heparin 5000 units SQ TID *Enoxaparin/Lovenox 40 mg SQ daily (WT < 150 kg, CrCl > 30 mL/min) *Enoxaparin/Lovenox 30 mg SQ daily (WT < 150 kg, CrCl > 10-29 mL/min) *Enoxaparin/Lovenox 30 mg SQ BID (WT < 150 kg, CrCl > 30 mL/min) AND/OR *Sequential Compression Device (SCD) 5 or more Highest Order ONE of the following medications: *Heparin 5000 units SQ TID (Preferred with Epidurals) *Enoxaparin/Lovenox 40 mg SQ daily (WT < 150 kg, CrCl > 30 mL/min) *Enoxaparin/Lovenox 30 mg SQ daily (WT < 150 kg, CrCl > 10-29 mL/min) *Enoxaparin/Lovenox 30 mg SQ BID (WT < 150 kg, CrCl > 30 mL/min) AND *Sequential Compression Device (SCD) Assessment and Plan - Assessment (1) Chest pain Code(s): R07.9 - Chest pain, unspecified Status: Acute - Plan This is a 62-year-old male presented to the ED with: Chest pain History of CAD with previous ND History of hyperlipidemia, chronic -Patient admits to a midsternal chest pressure lasting roughly 5 minutes that has been more frequent over the past 2 weeks. -He has been admitted to the chest pain center for observation. Serial EKGs and serial troponins were ordered for ruling out ACS purposes. -Initial troponin flat. Will follow trend. EKG reviewed, showing no ST changes to indicate any ischemia. -Chest x-ray reviewed showing some interstitial prominence, no acute cardiopulmonary disease noted. -Patient continued on cardiac telemetry. Monitor for any arrhythmias. -Will continue home statin for cholesterol. -Patient's risk factors include tobacco use, obesity and previous CAD with ND. Patient denies any previous stress test. He will likely undergo a cardiac nuclear stress test in the a.m. to further rule out any ischemia. -Further hospitalization treatment plan will depend on nuclear imaging results. -Patient is stable at this time and agreeable to plan. DVT prophylaxis: SCDs.
[2017-12-26] MEDS: Morphine Sulfate Inj 2 MG/ML Vial IV.PUSH PRN ×2 (18:27→22:32)
[2017-12-26 19:32] LABS: Creatine Kinase 99 U/L (39-308)
[2017-12-26] MEDS: Gabapentin 300 MG Capsule PO SCH (21:05)
[2017-12-26 22:17] LABS: Creatine Kinase 110 U/L (39-308)
[2017-12-27 06:58] LABS: Baso # (Auto) 0.1 th/mm3 (0.0-0.2); Eos # (Auto) 0.2 th/mm3 (0.0-0.4); Eos % (Auto) 2.9 % (0.0-4.0); Hematocrit 48.1 % (39.0-51.0); Hemoglobin 16.4 gm/dL (13.0-17.0); Lymph # (Auto) 1.7 th/mm3 (1.0-4.8); Lymph % (Auto) 32.3 % (9.0-44.0); Mean Corpuscular Hemoglobin 33.1 pg (27.0-34.0); Mean Corpuscular Volume 97.2 fL (80.0-100.0); Mean Platelet Volume 9.1 fL (7.0-11.0); Mono # (Auto) 0.5 th/mm3 (0.0-0.9); Mono % (Auto) 9.6 % (0.0-8.0); Neut # (Auto) 2.7 th/mm3 (1.8-7.7); Neut % (Auto) 53.2 % (16.0-70.0); Platelet Count 135 th/mm3 (150-450); Red Blood Count 4.95 mil/mm3 (4.50-5.90); Red Cell Distribution Width 12.7 % (11.6-17.2); White Blood Count 5.2 th/mm3 (4.0-11.0)
[2017-12-27 07:05] LABS: Chloride 102 meq/L (98-107); Potassium 3.9 meq/L (3.5-5.1); Sodium 137 meq/L (136-145)
[2017-12-27 07:10] LABS: Albumin 3.4 g/dL (3.4-5.0); Anion Gap 8 meq/L (5-15); Blood Urea Nitrogen 11 mg/dL (7-18); Calcium 8.3 mg/dL (8.5-10.1); Carbon Dioxide 27.1 meq/L (21.0-32.0); Glucose,Random 99 mg/dL (74-106)
[2017-12-27 07:13] LABS: Alanine Aminotransferase 40 U/L (12-78); Aspartate Aminotransferase 31 U/L (15-37); Glomerular Filtration Rate Greater Than 89 mL/min (>89)
[2017-12-27 07:15] LABS: Total Protein 6.8 g/dL (6.4-8.2)
[2017-12-27 07:16] LABS: Alkaline Phosphatase 100 U/L (45-117)
--- NOTE | 2017-12-27 07:43 | P.PNIM ---
Subjective Interval history: Follow up chest pain. Patient seen and examined, sitting on side of bed comfortably in [facility]. Denies any chest pain overnight. VSS. Afebrile. Awaiting stress test this am. Physical Exam Vital signs: Vital Signs 12/26/17 15:19 12/26/17 15:40 12/26/17 15:46 Temperature 97.5 F L Pulse Rate 66 67 79 Respiratory Rate 18 18 Blood Pressure 142/92 H 120/65 Pulse Oximetry 100 98 98 12/26/17 16:03 12/26/17 16:15 12/26/17 17:14 Temperature Pulse Rate 69 62 60 Respiratory Rate 18 18 18 Blood Pressure 132/79 111/61 126/67 Pulse Oximetry 100 98 99 12/26/17 20:00 12/27/17 00:00 12/27/17 04:00 Temperature 97.6 F 99.2 F 96.4 F L Pulse Rate 75 77 64 Respiratory Rate 18 18 18 Blood Pressure 123/68 122/81 Pulse Oximetry 96 95 94 L Intake & Output 12/26/17 12/27/17 12/27/17 18:59 06:59 18:59 Intake Total 480 / 480 Output Total 150 / 150 Balance 480 / 480 -150 / -150 Weight 93.2 kg 92.6 kg Intake: Oral 480 / 480 Output: Urine 150 / 150 Other: # Voids 1 4 # Bowel Movements 0 Narrative: GENERAL: Well-developed, well-nourished patient in [facility]. SKIN: Warm and dry. No rash. HEAD: Normocephalic. Atraumatic. EYES: Pupils equal and round. No scleral icterus. No injection or drainage. ENT: No nasal bleeding or discharge. Mucous membranes pink and moist. NECK: Supple. Trachea midline. CARDIOVASCULAR: Regular rate and rhythm. S1, S2 noted. No murmur appreciated. No chest pain to palpation. RESPIRATORY: No accessory muscle use. Clear to auscultation. Breath sounds equal bilaterally. GASTROINTESTINAL: Abdomen soft, non-tender, nondistended. Normoactive bowel sounds x4. MUSCULOSKELETAL: No obvious deformities. Extremities without clubbing, cyanosis , or edema. NEUROLOGICAL: Awake and alert. No obvious cranial nerve deficits. Motor grossly within normal limits. 5/5 muscle strength in bilateral upper and lower extremities. Normal speech. PSYCHIATRIC: Appropriate mood and affect; insight and judgment normal. Results - Labs CBC & Chem 7: 12/27/17 06:15 12/27/17 06:15 Laboratory Results - last 24 hr 12/26/17 12/26/17 12/26/17 15:45 15:45 15:45 CBC w Diff Auto diff final WBC 6.1 RBC 5.08 Hgb 16.7 Hct 49.3 MCV 97.1 MCH 32.9 MCHC 33.9 RDW 12.9 Plt Count 143 L MPV 9.6 Neut % (Auto) 55.5 Lymph % (Auto) 33.4 [place] % (Auto) 8.5 H Eos % (Auto) 1.5 Baso % (Auto) 1.1 Neut # (Auto) 3.4 Lymph # (Auto) 2.0 [place] # (Auto) 0.5 Eos # (Auto) 0.1 Baso # (Auto) 0.1 WBC Differential . Differential Comment . PT 10.9 INR 1.1 APTT 22.8 L Sodium Potassium Chloride Carbon Dioxide Anion Gap BUN Creatinine Estimated GFR Random Glucose Calcium Total Bilirubin AST ALT Alkaline Phosphatase Total Creatine Kinase CK-MB (CK-2) Troponin I Total Protein Albumin Lipase Cancelled 12/26/17 12/26/17 12/26/17 15:45 18:43 21:50 CBC w Diff WBC RBC Hgb Hct MCV MCH MCHC RDW Plt Count MPV Neut % (Auto) Lymph % (Auto) [place] % (Auto) Eos % (Auto) Baso % (Auto) Neut # (Auto) Lymph # (Auto) [place] # (Auto) Eos # (Auto) Baso # (Auto) WBC Differential Differential Comment PT INR APTT Sodium 135 L Potassium 4.1 Chloride 103 Carbon Dioxide 21.8 Anion Gap 10 BUN 12 Creatinine 0.87 Estimated GFR Greater than 89 Random Glucose 128 H Calcium 8.8 Total Bilirubin 1.1 H AST 44 H ALT 43 Alkaline Phosphatase 109 Total Creatine Kinase 160 99 110 CK-MB (CK-2) 2.9 Troponin I Less than 0.02 L Less than 0.02 L Less than 0.02 L Total Protein 7.5 Albumin 3.6 Lipase 133 12/27/17 12/27/17 06:15 06:15 CBC w Diff Auto diff final WBC 5.2 RBC 4.95 Hgb 16.4 Hct 48.1 MCV 97.2 MCH 33.1 MCHC 34.0 RDW 12.7 Plt Count 135 L MPV 9.1 Neut % (Auto) 53.2 Lymph % (Auto) 32.3 [place] % (Auto) 9.6 H Eos % (Auto) 2.9 Baso % (Auto) 2.0 Neut # (Auto) 2.7 Lymph # (Auto) 1.7 [place] # (Auto) 0.5 Eos # (Auto) 0.2 Baso # (Auto) 0.1 WBC Differential . Differential Comment . PT INR APTT Sodium 137 Potassium 3.9 Chloride 102 Carbon Dioxide 27.1 Anion Gap 8 BUN 11 Creatinine 0.78 Estimated GFR Greater than 89 Random Glucose 99 Calcium 8.3 L Total Bilirubin 1.2 H AST 31 ALT 40 Alkaline Phosphatase 100 Total Creatine Kinase CK-MB (CK-2) Troponin I Total Protein 6.8 D Albumin 3.4 Lipase - Imaging Impressions Chest X-Ray 12/26/17 15:21 CONCLUSION: 1. Stable diffuse interstitial prominence with bibasilar atelectasis. Assessment and Plan - Assessment (1) Chest pain Code(s): R07.9 - Chest pain, unspecified Status: Acute - Plan This is a 62-year-old male presented to the ED with: Chest pain History of CAD with previous MS History of hyperlipidemia, chronic -Patient admits to a midsternal chest pressure lasting roughly 5 minutes that has been more frequent over the past 2 weeks. -He has been admitted to the chest pain center for observation. Serial EKGs and serial troponins were ordered for ruling out ACS purposes. -Troponin trend flat. EKG reviewed, showing no ST changes to indicate any ischemia. -Chest x-ray reviewed showing some interstitial prominence, no acute cardiopulmonary disease noted. -Patient continued on cardiac telemetry. Monitor for any arrhythmias. None overnight. -Will continue home statin for cholesterol. -Patient's risk factors include tobacco use, obesity and previous CAD with MS. Patient denies any previous stress test. -ACS was ruled out with cardiac enzymes and EKGs. He will undergo a cardiac nuclear stress test this am to further rule out any ischemia. -Further hospitalization treatment plan will depend on nuclear imaging results. -Patient is stable at this time and agreeable to plan. DVT prophylaxis: SCDs. Discharge Planning: Await cardiac stress test.
[2017-12-27] MEDS: Gabapentin 300 MG Capsule PO SCH (08:43)
[2017-12-27] MEDS ORDERED: Pantoprazole Sodium 20 MG DR Tablet PO SCH (09:00)
[2017-12-27 09:59] VITALS: BP 141/92; RESP 19; TEMP 97.1; O2SAT 95
[2017-12-27] MEDS ORDERED: Regadenoson Inj 0.4 MG/5 ML Syringe IV.PUSH ONE (11:28)
--- NOTE | 2017-12-27 12:23 | NM ---
EXAM DATE: 12/27/2017 10:47 AM EDT AGE/SEX: 62 years / Male INDICATIONS:Angina. . Substernal chest pain. CLINICAL DATA: This is the patient's initial encounter. Patient reports that signs and symptoms have been present for 1 day and indicates a pain score of 5/10. MEDICAL/SURGICAL HISTORY: Gastroesophageal reflux disease. . Hip replacement and shoulder surge ry. COMPARISON: [facility], CTA CAROTID ARTERIES W 3D RECON, 09/25/2014. . DOSE: 8.1 mCi Tc 99m Myoview at rest 26.3 mCi [id number] at stress 0.4 mg Lexiscan STRESS SYMPTOMS: Short of breath and nausea. EJECTION FRACTION: 66 % TECHNIQUE: The patient underwent pharmacologic stress with infusion of prescribed dose. Continuous ECG tracing was monitored during stress. Gated SPECT imaging was performed after stress and conventi onal SPECT imaging was performed at rest. The examination was performed on a SPECT/CT scanner, both attenuation and non-corrected datasets were reviewed. FINDINGS: Distribution: The maximum perfused segment at stress is in the inferior wall. Perfusion Study: The pattern of perfusion at stress is within normal limits. Gated Study: There are intact wall motion and wall thickening without hypokinetic or dyskinetic segm ents. The ejection fraction is calculated at 66%. RISK CATEGORY: Low (<1% Annual Motality Rate) CONCLUSION: 1. No significant stress-induced ischemia. 2. Intact wall motion with EF of 66%. Electronically signed by: Geremias Cabrera MD 12/27/2017 12:22 PM EDT
--- NOTE | 2017-12-27 14:02 | ECG ---
Date Performed: 12/26/2017 Time Performed: 15:16:27 PTAGE: 62 years EKG: Sinus rhythm NORMAL ECG PREVIOUS TRACING : 11/23/2017 10.38 Since previous tracing, no significant change noted DOCTOR: Moises Duffy Interpretating Date/Time 12/27/2017 14:00:33
--- NOTE | 2017-12-27 14:03 | ECG ---
Date Performed: 12/26/2017 Time Performed: 21:44:37 PTAGE: 62 years EKG: Sinus rhythm NORMAL ECG PREVIOUS TRACING : 12/26/2017 18.40 Since previous tracing, no significant change noted DOCTOR: Moises Duffy Interpretating Date/Time 12/27/2017 14:01:27
--- NOTE | 2017-12-27 14:03 | ECG ---
Date Performed: 12/26/2017 Time Performed: 18:40:28 PTAGE: 62 years EKG: Sinus rhythm NORMAL ECG PREVIOUS TRACING : 12/26/2017 15.16 Since previous tracing, no significant change noted DOCTOR: Moises Duffy Interpretating Date/Time 12/27/2017 14:01:06
[2017-12-27 14:05] VITALS: PULSE 65
--- NOTE | 2017-12-27 14:12 | TR ---
Date Performed: 12/27/2017 Time Performed: 11:39:46 DOCTOR: Moises Duffy DRUG LIST: CLINICAL HISTORY: REASON FOR TEST: REASON FOR ENDING: OBSERVATION: CONCLUSION: COMMENTS: Lexiscan stress test was performed under standard four minute protocol. Radionuclide was injected one minute prior to ending the test. No electrocardiographic abormalities were present t o suggest ischemia. Nuclear imaging and interpretation are pending.
== END 2017-12-27 15:00 | disposition home or self-care (01) ==
LOC: PHED 15:10 → PHEDA 15:10 → PH3 17:51
PROVIDERS: ADMIT Internal Medicine; ATTEND Internal Medicine
DX: I25.10 Atherosclerotic heart disease of native coronary artery without angina pectoris; J98.11 Atelectasis; K21.9 Gastro-esophageal reflux disease without esophagitis; Z86.73 Personal history of transient ischemic attack (TIA), and cerebral infarction without residual deficits; F17.210 Nicotine dependence, cigarettes, uncomplicated; Z88.6 Allergy status to analgesic agent; R07.9 Chest pain, unspecified; Z79.82 Long term (current) use of aspirin; E78.5 Hyperlipidemia, unspecified; Z96.649 Presence of unspecified artificial hip joint; I25.2 Old myocardial infarction; Z80.6 Family history of leukemia; E78.00 Pure hypercholesterolemia, unspecified

== ENCOUNTER 2018-01-12 13:54 | Inpatient (IN) ==
[2018-01-12] MEDS ORDERED: HYDROmorphone PF Inj 0.5 MG/0.5 ML Syringe IV.PUSH PRN (14:45)
[2018-01-12] MEDS ORDERED: Sod Chloride 0.9% Inj 1,000 ML IV.CONT SCH (14:45)
[2018-01-12] MEDS ORDERED: MethylPREDNISolone Sod Succinate Inj 125 MG/2 ML Vial IV.PUSH ONE (14:49)
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
[2018-01-12] MEDS ORDERED: HYDROmorphone PF Inj 2 MG/ML Vial IV.PUSH ONE (15:24)
[2018-01-12 15:33] LABS: Chloride 103 meq/L (98-107); Potassium 3.6 meq/L (3.5-5.1); Sodium 138 meq/L (136-145)
[2018-01-12 15:34] LABS: Baso # (Auto) 0.1 th/mm3 (0.0-0.2); Baso % (Auto) 1.6 % (0.0-2.0); Eos # (Auto) 0.1 th/mm3 (0.0-0.4); Eos % (Auto) 1.5 % (0.0-4.0); Hematocrit 48.5 % (39.0-51.0); Lymph # (Auto) 1.8 th/mm3 (1.0-4.8); Lymph % (Auto) 28.9 % (9.0-44.0); Mean Corpuscular HGB Conc 35.1 % (32.0-36.0); Mean Corpuscular Volume 97.1 fL (80.0-100.0); Mean Platelet Volume 8.6 fL (7.0-11.0); Mono # (Auto) 0.4 th/mm3 (0.0-0.9); Mono % (Auto) 7.2 % (0.0-8.0); Neut # (Auto) 3.7 th/mm3 (1.8-7.7); Neut % (Auto) 60.8 % (16.0-70.0); Platelet Count 131 th/mm3 (150-450); Red Blood Count 4.99 mil/mm3 (4.50-5.90); Red Cell Distribution Width 12.4 % (11.6-17.2); White Blood Count 6.1 th/mm3 (4.0-11.0)
[2018-01-12 15:36] LABS: Anion Gap 10 meq/L (5-15); Blood Urea Nitrogen 13 mg/dL (7-18); Calcium 8.6 mg/dL (8.5-10.1); Carbon Dioxide 25.5 meq/L (21.0-32.0); Glucose,Random 103 mg/dL (74-106)
[2018-01-12 15:39] LABS: Activated Partial Thrombo Time 25.7 sec (23.4-31.7); INR 1.1 Ratio; Prothrombin Time 10.8 sec (9.8-11.6)
[2018-01-12 15:40] LABS: Glomerular Filtration Rate 68 mL/min (>89)
--- NOTE | 2018-01-12 16:04 | CT ---
EXAM DATE: 01/12/2018 3:59 PM EST AGE/SEX: 62 years / Male INDICATIONS: Cephalgia. Left side weakness. CLINICAL DATA: This is the patient's initial encounter. Patient reports that signs and symptoms have been present for 1 day and indicates a pain score of 10/10. MEDICAL/SURGICAL HISTORY: Cerebrovascular disease. None. Facial. RADIATION DOSE: 59.08 CTDI (mGy) COMPARISON: [facility], CT HEAD W/O CONTRAST, 11/23/2017. . TECHNIQUE: CT of the head without contrast. Using automated exposure control and adjustment of the mA and/or kV according to patient size, radiation dose was kept as low as reasonably achievable to ob tain optimal diagnostic quality images. DICOM format image data is available electronically for revi ew and comparison. FINDINGS: Cerebrum: Mild diffuse cerebral atrophy. The ventricles are normal for degree of atrophy. No evidenc e of midline shift, mass lesion, hemorrhage or acute infarction. No extraaxial fluid collections are seen. Posterior Fossa: The cerebellum and brainstem are intact. The 4th ventricle is midline. The cerebe llopontine angle is unremarkable. Extracranial: The visualized portion of the orbits is intact. Skull: The calvaria is intact. No evidence of skull fracture. CONCLUSION: 1. No acute intracranial abnormality. . Electronically signed by: Geremias Cabrera MD 01/12/2018 4:03 PM EST
[2018-01-12] MEDS ORDERED: Bisacodyl 10 MG Supp RECTAL PRN (17:58)
[2018-01-12] MEDS ORDERED: Acetaminophen 325 MG Tablet PO PRN (17:58)
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
[2018-01-12 19:50] VITALS: RESP 18; TEMP 98.3; O2SAT 95
[2018-01-12 19:51] VITALS: BP 141/96; PULSE 85
--- NOTE | 2018-01-13 10:13 | ECG ---
Date Performed: 01/12/2018 Time Performed: 16:22:52 PTAGE: 62 years EKG: Sinus rhythm BORDERLINE LEFT AXIS DEVIATION Since the previous tracing, no significant change noted BORDERLINE EC G PREVIOUS TRACING : 12/26/2017 21.44 DOCTOR: Moises Duffy Interpretating Date/Time 01/13/2018 10:12:18
== END 2018-01-12 19:49 | disposition left against medical advice (07) ==
LOC: PHED 13:54 → PHEDA 18:03
PROVIDERS: ADMIT Hospitalist; ATTEND Hospitalist